=== PATIENT | male | born 1935 | race Hispanic/Latino ===

== ENCOUNTER 2024-06-08 15:59 | Outpatient (CLI) | payer MEDICARE | END 2024-06-08 16:00 | disposition home or self-care (01) | LOC: SCSRAD 15:59 | PROVIDERS: ATTEND Family Medicine | DX: M79.671 Pain in right foot (principal) ==

== ENCOUNTER 2024-09-07 12:59 | Outpatient (CLI) | payer MEDICARE | END 2024-09-07 13:00 | disposition home or self-care (01) | LOC: BICCT 12:59 | PROVIDERS: ATTEND Orthopaedic Surgery Hand Surgery | DX: S62.015A Nondisplaced fracture of distal pole of navicular [scaphoid] bone of left wrist, initial encounter for closed fracture (principal); S62.172A Displaced fracture of trapezium [larger multangular], left wrist, initial encounter for closed fracture ==